=== PATIENT | female | born 1955 | race Caucasian/White ===

== ENCOUNTER 2016-11-19 16:31 | Emergency (ER) | payer BC ==
[~2016-11-19] VITALS: Ht 167.6 cm; Wt 99.3 kg
[2016-11-19 16:49] VITALS: BP 134/85
--- NOTE | 2016-11-19 17:01 | PHYS DOC ---
Adult General Chief Complaint Chief Complaint: WRIST PAIN HPI HPI Patient is a 61 year old female who presents with complaint of left wrist pain. Patient states that she had an accidental fall earlier this morning after she stepped on her grandson's toy, causing her to fall back. Patient states that she tried to catch herself with both hands. Patient states that she injured her left wrist as a result of the fall. Patient states that she bumped her head but did not lose consciousness. Patient denies any other injuries. Patient states that she has history of arthritis and is currently on Mobic therapy. Patient states that she took her regular medication today but did not take anything in addition for her pain. Patient states currently she has 8 out of 10 pain in the left wrist. Patient states that the left wrist has progressively swollen and become more painful to the point where she is unable to spring fitter with her left hand. Patient came to the emergency department for evaluation to see if she has any evidence of broken bones in her wrist. Review of Systems Review of Systems Constitutional: Denies fever or chills [] Eyes: Denies change in visual acuity, redness, or eye pain [] HENT: Denies nasal congestion or sore throat [] Respiratory: Denies cough or shortness of breath [] Cardiovascular: Denies chest pain or edema [] GI: Denies abdominal pain, nausea, vomiting, bloody stools or diarrhea [] : Denies dysuria or hematuria [] Musculoskeletal: Left wrist pain [] Integument: Denies rash or skin lesions [] Neurologic: Denies headache, focal weakness or sensory changes [] Current Medications Current Medications Current Medications Medications (Trade) Dose Ordered Sig/[facility] Start Time Stop Time Status Last Admin Dose Admin Acetaminophen (Tylenol) 1,000 mg 1X ONCE 11/19/16 17:00 11/19/16 17:01 UNV Allergies Allergies Allergies Coded Allergies Type Severity Reaction Last Updated Verified No Known Drug Allergies 11/19/16 No Physical Exam Physical Exam Constitutional: Well developed, well nourished, no acute distress, non-toxic appearance. [] HENT: Normocephalic, atraumatic, bilateral external ears normal, oropharynx moist, no oral exudates, nose normal. [] Eyes: PERRLA, EOMI, conjunctiva normal, no discharge. [] Neck: Normal range of motion, no tenderness, supple, no stridor. [] Cardiovascular:Heart rate regular rhythm, no murmur [] Lungs & Thorax: Bilateral breath sounds clear to auscultation [] Abdomen: Bowel sounds normal, soft, no tenderness, no masses, no pulsatile masses. [] Skin: Warm, dry, no erythema, no rash. [] Back: No tenderness, no CVA tenderness. [] Extremities: Dorsal soft tissue swelling over distal left forearm, tenderness to palpation in the left anatomical snuffbox, pain at base of thumb with axial loading, decreased range of motion secondary to pain in all 5 digits and left wrist, capillary refill less than 2 seconds, normal sensation in all 5 digits of left hand. [] Neurologic: Alert and oriented X 3, normal motor function, normal sensory function, no focal deficits noted. [] EKG EKG Not performed [] Radiology/Procedures Radiology/[place] [address] IMAGING REPORT Signed PATIENT: PURNIMA CULVER ACCOUNT: [id number] : 1955 LOCATION: ER AGE: 61 SEX: F EXAM STATUS: PRE ER ORD. PHYSICIAN: DIEGO PERALTA MD REASON: fall, left wrist injury PROCEDURE: FOREARM LEFT Indication fall, pain. AP and lateral views of the left forearm were obtained. No acute bony finding is seen DICTATED AND SIGNED BY: CHEMA CM MD DATE: 11/19/16 170 CC: DIEGO PERALTA MD; FATEM[facility] [place]ION [place] ~ [place] [address] IMAGING REPORT Signed PATIENT: PURNIMA CULVER ACCOUNT: [id number] : 1955 LOCATION: ER AGE: 61 SEX: F EXAM STATUS: PRE ER ORD. PHYSICIAN: DIEGO PERALTA MD REASON: fall, left wrist injury PROCEDURE: WRIST 3V LEFT Indication fall, pain. AP oblique and lateral views of the left wrist were obtained. There is some mild degenerative change involving the carpal bones on the radial side. Acute bony finding is not seen DICTATED AND SIGNED BY: CHEMA CM MD DATE: 11/19/16 1705 CC: DIEGO PERALTA MD; FATEMEH CARRION ~ [] Course & Med Decision Making Course & Med Decision Making Pertinent Labs and Imaging studies reviewed. (See chart for details) Patient's x-rays were negative for acute fracture. Patient was given a Velcro splint to the left wrist to assist with discomfort. This was applied by the emergency department nurse. My evaluation post application showed normal capillary refill in all 5 digits of the left hand and normal sensation. I recommended that the patient follow-up in the next 10-14 days with her primary doctor for reevaluation if symptoms are not improving and recommended return to emergency department for any worsening symptoms. Patient voiced understanding and in agreement with treatment plan. Dragon Disclaimer Dragon Disclaimer This chart was dictated in whole or in part using Voice Recognition software in a busy, high-work load, and often noisy Emergency Department environment. It may contain unintended and wholly unrecognized errors or omissions. Departure Departure: Impression: Primary Impression: Left wrist sprain Disposition: HOME, SELF-CARE Condition: IMPROVED Referrals: FATEMEH CARRION (PCP) Patient Instructions: Joint Sprain Additional Instructions: Follow-up in 10-14 days with your primary doctor if symptoms are not improving. Return to the emergency department for any worsening symptoms. Scripts Hydrocodone Bit/Acetaminophen (NORCO 5-325 TABLET) 1 Each Tablet 1 TAB PO Q4-6HRS Y for PAIN, #20 TAB Prov: DIEGO PERALTA MD 11/19/16 Problem Qualifiers Primary Impression: Left wrist sprain Encounter type: initial encounter Qualified Codes: S63.502A - Unspecified sprain of left wrist, initial encounter DIEGO PERALTA MD November 19, 2016 17:01
[2016-11-19] MEDS ORDERED: HYDR-971 PO (17:07)
--- NOTE | 2016-11-19 17:08 | RAD ---
Indication fall, pain. AP oblique and lateral views of the left wrist were obtained. There is some mild degenerative change involving the carpal bones on the radial side. Acute bony finding is not seen
--- NOTE | 2016-11-19 17:11 | RAD ---
Indication fall, pain. AP and lateral views of the left forearm were obtained. No acute bony finding is seen
[2016-11-19] MEDS ORDERED: ACETAMINOPHEN 500 MG TABLET PO ONE (17:20)
== END 2016-11-19 17:15 | disposition home or self-care (01) ==
LOC: ER 16:31
DX: S63.502A Unspecified sprain of left wrist, initial encounter (principal); W18.31XA Fall on same level due to stepping on an object, initial encounter; Y93.89 Activity, other specified; Y99.8 Other external cause status; Y92.89 Other specified places as the place of occurrence of the external cause
CPT/HCPCS: 29125; 73090; 73110; 99284-25

== ENCOUNTER → 2016-11-30 | Outpatient (CLI) | payer BC ==
[2016-11-19 16:49] VITALS: BP 134/85
[~2016-11-30] MED LIST: HYDR-971 PO
--- NOTE | 2016-11-30 09:58 | RAD ---
Examination: 3 views of the left wrist History: History of left wrist pain status post fall Comparison: 11/19/2016 Findings: Osseous demineralization limits evaluation There is a very subtle lucent line identified in the lateral aspect of the distal radius seen only breast on the AP view is probably artifactual or a very subtle hairline fracture. The carpal bones appear to be well aligned. There is moderate degenerative changes identified in the first carpometacarpal joint. In the distal scaphoid seen best on the scaphoid view there is a very faint subtle lucent line identified which may be a lucent trabecular line or a faint subtle fracture. Soft tissue swelling identified about the distal forearm Impression: Faint subtle lucent lines identified in the lateral aspect of the distal radius and possibly in the distal portion of the scaphoid could be lucent trabecular lines or less likely faint subtle fractures. Examination is very limited due to osseous demineralization. Recommend MRI for further evaluation.
== END | disposition home or self-care (01) ==
LOC: DXRADRC 09:40
PROVIDERS: ATTEND Physician Assistant Medical
DX: M25.532 Pain in left wrist (principal); W19.XXXD Unspecified fall, subsequent encounter
CPT/HCPCS: 73110

== ENCOUNTER → 2017-02-22 | Outpatient (CLI) | payer BC ==
--- NOTE | 2017-02-22 14:58 | RAD ---
Indication left hand pain. Fall several months previously. AP oblique and lateral views of the left hand were obtained. There is some diffuse soft tissue swelling about the wrist. There is probable bony demineralization. Significant degenerative changes are not seen involving the hand although there is some radiocarpal narrowing. No acute bony finding is seen.. IMPRESSION: No acute bony finding. Probable bony demineralization
== END | disposition home or self-care (01) ==
LOC: DXRADRC 13:06
PROVIDERS: ATTEND Physician Assistant Medical
DX: M79.642 Pain in left hand (principal); M79.89 Other specified soft tissue disorders; W19.XXXD Unspecified fall, subsequent encounter
CPT/HCPCS: 73130

== ENCOUNTER → 2017-09-08 | Outpatient (CLI) | payer BC ==
--- NOTE | 2017-09-08 16:08 | RAD ---
2 view CXR: Clinical indications: Shortness of breath since June 2017. Comparison: December 06, 2011. Findings: No acute lung infiltrate or pleural effusion or pulmonary edema or lung mass or pneumothorax is seen. The heart size, pulmonary vasculature, mediastinum and both sandra are unremarkable. The osseous structures appear intact. Impression: No acute radiographic abnormality is seen.
== END | disposition home or self-care (01) ==
LOC: PMG 15:48
PROVIDERS: ATTEND Physician Assistant Medical
DX: R06.02 Shortness of breath (principal)
CPT/HCPCS: 71046

== ENCOUNTER → 2017-09-14 | Outpatient (CLI) | payer BC ==
--- NOTE | 2017-09-14 15:32 | RAD ---
CT maxillofacial without contrast 09/14/2017 Clinical indication: Chronic sinusitis. Comparison: None. Technique: Multiple CT images of the maxillofacial region were obtained without contrast. PQRS Compliance Statement: One or more of the following individualized dose reduction techniques were utilized for this examination: 1. Automated exposure control 2. Adjustment of the mA and/or kV according to patient size 3. Use of iterative reconstruction technique Findings: Visualized intracranial structures, globes and orbits are unremarkable. The intraconal fat is preserved. Symmetric extraocular muscles. Mild rightward deviation of the nasal septum. Partial fluid opacification of the bilateral mastoid air cells. There is air-fluid level in the sphenoid sinus. Maxillary, ethmoid and frontal sinuses are well aerated. There is patency of the ostiomeatal units. No evidence of bony dehiscent. Impression: 1. Sphenoid sinus air-fluid level, suggestive of acute sinusitis. 2. Ostiomeatal units are patent. 3. Partial bilateral mastoid effusions.
== END | disposition home or self-care (01) ==
LOC: CT 15:03
PROVIDERS: ATTEND Physician Assistant Medical
DX: J32.9 Chronic sinusitis, unspecified (principal); H74.8X3 Other specified disorders of middle ear and mastoid, bilateral; J34.2 Deviated nasal septum
CPT/HCPCS: 70486

== ENCOUNTER → 2017-10-18 | Outpatient (CLI) | payer BC ==
--- NOTE | 2017-10-18 17:11 | RAD ---
CT sinus without contrast History: Chronic sinusitis, congestion, pain. Comparison: September 14, 2017 Technique: CT of the sinuses was performed without intravenous contrast. Axial, sagittal, and coronal reconstructions were obtained. Exposure: One or more of the following individualized dose reduction techniques were utilized for this examination: 1. Automated exposure control 2. Adjustment of the mA and/or kV according to patient size 3. Use of iterative reconstruction technique Findings: There is a persistent air-fluid level involving the sphenoid sinus, although overall amount of fluid is decreased since the previous study. Posterior right maxillary sinus demonstrates minimal mucosal disease. Paranasal sinuses are otherwise clear. No mucoperiosteal reaction is identified. Bilateral ostiomeatal units are patent. Mild opacification of mastoid air cells is similar to previous study. IMPRESSION: 1. Mild left maxillary and sphenoid sinusitis, mildly improved from previous study. 2. Mild opacification of bilateral mastoid air cells, similar to previous study. Electronically signed by: Mikhail Wall MD (10/18/2017 5:08 PM) [place] [id number]
== END | disposition home or self-care (01) ==
LOC: DXRAD 09:56
PROVIDERS: ATTEND Otolaryngology
DX: J32.3 Chronic sphenoidal sinusitis (principal)
CPT/HCPCS: 70486

== ENCOUNTER → 2018-11-24 | Outpatient (CLI) | payer MEDICARE, BC ==
[~2018-11-24] MED LIST changes: +HYDR-3165 PO; -HYDR-971 PO
--- NOTE | 2018-11-24 17:24 | RAD ---
Bilateral knees, 6 views, 11/24/2018: HISTORY: Bilateral knee pain There is joint space narrowing medially on both sides, worse on the right. There is moderate spurring at both knee joints as well as at the patellofemoral articulations. No fracture or subluxation is evident. There is a suggestion of a small right knee joint effusion. IMPRESSION: 1. Moderate degenerative change at both knee joints. 2. No acute bony abnormality is detected. Electronically signed by: Celso Anguiano MD (11/24/2018 5:21 PM) [facility]
--- NOTE | 2018-11-24 17:24 | RAD ---
Bilateral knees, 6 views, 11/24/2018: HISTORY: Bilateral knee pain There is joint space narrowing medially on both sides, worse on the right. There is moderate spurring at both knee joints as well as at the patellofemoral articulations. No fracture or subluxation is evident. There is a suggestion of a small right knee joint effusion. IMPRESSION: 1. Moderate degenerative change at both knee joints. 2. No acute bony abnormality is detected. Electronically signed by: Celso Anguiano MD (11/24/2018 5:21 PM) [facility]
== END | disposition home or self-care (01) ==
LOC: RAD 09:35
PROVIDERS: ATTEND Orthopaedic Surgery
DX: M17.0 Bilateral primary osteoarthritis of knee (principal); M25.762 Osteophyte, left knee; M25.761 Osteophyte, right knee
CPT/HCPCS: 73560; 73565

== ENCOUNTER → 2019-01-12 | Outpatient (CLI) | payer MEDICARE, BC ==
--- NOTE | 2019-01-23 10:03 | RAD ---
DATE: 01/12/2019 EXAM: MAMMO SAYDA SCREENING BILATERAL HISTORY: Routine screening COMPARISON: No prior exams are available. Attempts to obtain prior exams were unsuccessful. This study was interpreted with the benefit of Computerized Aided Detection (CAD). Breast Density: SCATTERED The breast parenchyma shows scattered fibroglandular densities. Breast parenchyma level B. FINDINGS: Benign calcifications are present. Focal asymmetry involving the anterior left upper outer breast is present. It is located 2.9 cm from the nipple. No distortion. IMPRESSION: Focal asymmetry along the left upper outer breast which probably represents summation of normal breast parenchyma is present. Prior exams however are not available for assessment of stability. Spot compression is recommended. Ultrasound may be needed. BI-RADS CATEGORY: 0 INCOMPLETE: NEEDS ADDITIONAL IMAGING EVALUATION AND/OR PRIOR MAMMOGRAMS FOR COMPARISON. RECOMMENDED FOLLOW-UP: ADD ADDITIONAL IMAGING PQRS compliance statement: Patient information was entered into a reminder system with a target due date pending additional imaging for the next mammogram. Mammography is a sensitive method for finding small breast cancers, but it does not detect them all and is not a substitute for careful clinical examination. A negative mammogram does not negate a clinically suspicious finding and should not result in delay in biopsying a clinically suspicious abnormality. "Our facility is accredited by the [employer] Mammography Program."
== END | disposition home or self-care (01) ==
LOC: MAMMO 13:05
PROVIDERS: ATTEND Physician Assistant Medical
DX: Z12.31 Encounter for screening mammogram for malignant neoplasm of breast (principal); N64.89 Other specified disorders of breast
CPT/HCPCS: 77063; 77067

== ENCOUNTER → 2019-02-03 | Outpatient (CLI) | payer MEDICARE, BC ==
--- NOTE | 2019-02-03 14:57 | RAD ---
Indication: Left breast callback TECHNIQUE: Limited ultrasound of the left upper outer quadrant of the breast COMPARISON: Same day diagnostic mammogram FINDINGS: The skin is normal in thickness. No cystic or solid lesions seen in the interrogated upper outer left breast quadrant IMPRESSION: No suspicious sonographic findings. Findings seen on mammogram likely dense glandular tissue. BI-RADS 2: Benign finding. Continued annual screening. Electronically signed by: Indra Stevenson DO (02/03/2019 2:54 PM) [facility]
--- NOTE | 2019-02-03 14:59 | RAD ---
DATE: 02/03/2019 EXAM: DIGITAL DIAGNOSTIC LT HISTORY: Callback. COMPARISON: Most recent mammogram from 01/12/2019. This study was interpreted with the benefit of Computerized Aided Detection (CAD). FINDINGS: Breast Density: SCATTERED The breast parenchyma shows scattered fibroglandular densities. Breast parenchyma level B. Persistent focal asymmetry in the upper outer quadrant of the left breast most likely dense fibroglandular tissue. IMPRESSION: As above. Please see ultrasound report from the same day. BI-RADS CATEGORY: 2 BENIGN FINDING(S) RECOMMENDED FOLLOW-UP: 12M 12 MONTH FOLLOW-UP PQRS compliance statement: Patient information was entered into a reminder system with a target due date for the next mammogram. Mammography is a sensitive method for finding small breast cancers, but it does not detect them all and is not a substitute for careful clinical examination. A negative mammogram does not negate a clinically suspicious finding and should not result in delay in biopsying a clinically suspicious abnormality. "Our facility is accredited by the [employer] Mammography Program."
== END | disposition home or self-care (01) ==
LOC: MAMMO 13:33
PROVIDERS: ATTEND Physician Assistant Medical
DX: R92.2 Inconclusive mammogram (principal)
CPT/HCPCS: 76641; 77065

== ENCOUNTER 2019-03-19 17:35 | Emergency (ER) | payer MEDICARE, BC ==
--- NOTE | 2019-03-19 18:35 | PHYS DOC ---
Past History Past Medical History: Arthritis, Depression Past Surgical History: Cholecystectomy, Knee Replacement Alcohol Use: None Drug Use: None Adult General Chief Complaint Chief Complaint: KNEE INJURY HPI HPI Patient is a 64-year-old female presents complaining of right knee pain. This started around noon she was getting up from the table. She felt like she couldn't walk on it, increased pain with weightbearing. She took a nap for a little while and things improved. However when getting up from a table around 4:00 this evening, pain again increased. No trauma. She has a history of recent steroid injection several weeks ago and both knees, and reports that her left knee is doing as well as it ever does. No previous history of this with previous knee injections. No knee surgeries. No fever. No redness. She reports it feels warm. Minimal relief with acetaminophen. She is not on any blood thinners. No recent travel. No dysuria or vaginal discharge.[] Review of Systems Review of Systems Constitutional: Denies fever or chills [] Eyes: Denies change in visual acuity, redness, or eye pain [] HENT: Denies nasal congestion or sore throat [] Respiratory: Denies cough or shortness of breath [] Cardiovascular: No chest pain or palpitations[] GI: Denies abdominal pain, nausea, vomiting, bloody stools or diarrhea [] : Denies dysuria or hematuria [] Musculoskeletal: Denies back pain, see history of present illness[] Integument: Denies rash or skin lesions [] Neurologic: Denies headache, focal weakness or sensory changes [] Endocrine: Denies polyuria or polydipsia [] All other systems were reviewed and found to be within normal limits, except as documented in this note. Allergies Allergies Allergies Coded Allergies Type Severity Reaction Last Updated Verified No Known Drug Allergies 11/19/16 No Physical Exam Physical Exam Constitutional: Well developed, well nourished, no acute distress, non-toxic appearance. [] HENT: Normocephalic, atraumatic, bilateral external ears normal, oropharynx moist, no oral exudates, nose normal. [] Eyes: PERRLA, EOMI, conjunctiva normal, no discharge. [] Neck: Normal range of motion, no tenderness, supple, no stridor. [] Cardiovascular:Heart rate regular rhythm, no murmur [] Lungs & Thorax: Bilateral breath sounds clear to auscultation [] Abdomen: Bowel sounds normal, soft, no tenderness, no masses, no pulsatile m asses. [] Skin: Warm, dry, no erythema, no rash. [] Back: No tenderness, no CVA tenderness. [] Extremities: Bilateral knees have edema and effusion, left appears larger than right. Patient has tenderness to palpation lateral portion of her right knee, full active range of motion. No joint line tenderness. Patella is ballotable bilaterally. No patellar apprehension. Negative drawer, negative Sage test. No varus or valgus laxity. She is distally neurovascularly intact. The joint above and below were evaluated and were normal. The other 3 extremities show except for noted on the left knee above: No tenderness, no cyanosis, no clubbing, ROM intact, no edema. [] Neurologic: Alert and oriented X 3, normal motor function, normal sensory function, no focal deficits noted. [] Psychologic: Affect normal, judgement normal, mood normal. [] Current Patient Data Vital Signs Vital Signs Date Time Temp Pulse Resp B/P (MAP) Pulse Ox O2 Delivery O2 Flow Rate FiO2 03/19/19 17:48 74 18 96 Room Air EKG EKG [] Radiology/Procedures Radiology/Procedures X-ray of the right knee shows no evidence of a fracture or dislocation, no significant effusion.[] Course & Med Decision Making Course & Med Decision Making Pertinent Labs and Imaging studies reviewed. (See chart for details) []ED course: Patient arrived, was placed in bed, and tolerated exam well. She was transported to and from radiology with any complications. Attempted arthrocentesis after informed consent was signed with all questions answered. Patient was prepped and draped in sterile manner. 3 L of 1% lidocaine were administered for anesthesia. 18-gauge needle was inserted via the lateral approach. No significant amount of fluid was obtained after several attempts and repositioning. After the return of the laboratory and imaging studies, discussed these findings with the patient who voiced understanding. All questions were answered. She was discharged in improved condition. Medical decision making: There is no evidence of a fracture or dislocation. Believe this to be more related to her arthritis despite the inability to obtain any significant amount of fluid through an arthrocentesis. This seems to be related to arthritis given that its worse with a bend at 90�, and she is able to walk in the emergency department without any significant discomfort while keeping the leg essentially straight while lying in bed. There is no evidence of a septic joint. Dragon Disclaimer Dragon Disclaimer This electronic medical record was generated, in whole or in part, using a voice recognition dictation system. Departure Departure: Impression: Primary Impression: Knee pain Disposition: HOME, SELF-CARE Condition: IMPROVED Referrals: FATEMEH CARRION (PCP) Follow-up in 2 days Patient Instructions: Knee Exercises, Generic, SportsMed, Knee Pain Additional Instructions: Follow-up with your regular doctor in 2 days and your orthopedic appointment as scheduled. Return to the ER if worsening pain, weakness, fever of more than 101�, redness, or any other concerns. Scripts Tramadol Hcl (TRAMADOL HCL) 50 Mg Tablet 50 MG PO PRN Q6HRS PRN for PAIN, #20 TAB Prov: VANESA GRAHAM DO 03/19/19 Problem Qualifiers Primary Impression: Knee pain Chronicity: acute Laterality: right Qualified Codes: M25.561 - Pain in right knee VANESA GRAHAM DO Mar 19, 2019 18:35
[2019-03-19 19:03] LABS: BASO # 0.1 x10^3/uL (0.0-0.2); BASO % 1 % (0-3); EOS # 0.1 x10^3/uL (0.0-0.7); EOS % 2 % (0-3); HEMATOCRIT 42.8 % (36.0-47.0); HEMOGLOBIN 14.5 g/dL (12.0-15.5); LYMPH # 1.3 x10^3/uL (1.0-4.8); LYMPH % 23 % (24-48); MEAN CORPUSCULAR HEMOGLOBIN 34 pg (25-35); MEAN CORPUSCULAR HGB CONC 34 g/dL (31-37); MEAN CORPUSCULAR VOLUME 100 fL (79-100); MONO # 0.5 x10^3/uL (0.0-1.1); MONO % 8 % (0-9); NEUT # 3.8 x10^3uL (1.8-7.7); NEUT % 66 % (31-73); PLATELET COUNT 176 x10^3/uL (140-400); RED BLOOD COUNT 4.29 x10^6/uL (3.50-5.40); RED CELL DISTRIBUTION WIDTH 13.1 % (11.5-14.5); WHITE BLOOD COUNT 5.8 x10^3/uL (4.0-11.0)
[2019-03-19 19:14] LABS: C REACTIVE PROTEIN 0.6 mg/L (0-3.3); CALCIUM 9.2 mg/dL (8.5-10.1); CREATININE 1.1 mg/dL (0.6-1.0); GFR 49.7
[2019-03-19] MEDS ORDERED: LIDOCAINE 2% 20 ML VIAL. ONE (19:16)
[2019-03-19 19:19] LABS: BILIRUBIN,URINE NEG (NEG); CLARITY,URINE CLEAR; COLOR,URINE YELLOW; GLUCOSE,URINE NEG (NEG); NITRITE,URINE NEG (NEG); UROBILINOGEN,URINE 1 mg/dL (0.2 mg/dL)
[2019-03-19 19:20] LABS: BACTERIA,URINE 0 /HPF (0-FEW); RBC,URINE 0 /HPF (0-2); SQUAMOUS EPITHELIAL CELL,UR OCC /LPF; WBC,URINE OCC /HPF (0-4)
[2019-03-19] MEDS ORDERED: LIDOCAINE 1% Multi-Dose 20 ML VIAL. IJ ONE (19:30)
[2019-03-19 20:19] LABS: SEDIMENTATION RATE 15 (0-25)
[2019-03-19] MEDS ORDERED: TRAM50TA PO (20:36)
[2019-03-19 20:38] VITALS: BP 142/83
--- NOTE | 2019-03-19 22:36 | RAD ---
KNEE RIGHT 3V INDICATION: Knee pain and swelling COMPARISON: Knee radiographs dated 11/24/2018 FINDINGS: No acute fracture or malalignment. 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 Small suprapatellar joint effusion. Bony mineralization is normal for the patient's age. No significant soft tissue abnormality. No radiopaque foreign body. IMPRESSION: 1. No acute fracture or malalignment. 2. 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 3. Small suprapatellar joint effusion. Electronically signed by: Raheel Tripathi MD (03/19/2019 10:33 PM) [facility]
== END 2019-03-19 20:40 | disposition home or self-care (01) ==
LOC: ER 17:35
DX: M25.561 Pain in right knee (principal); M19.90 Unspecified osteoarthritis, unspecified site; Z96.659 Presence of unspecified artificial knee joint
CPT/HCPCS: 20610; 36415; 73562; 80048; 81001; 85025; 85610; 85651; 86140; 87040; 87491; 87591; 99285-25

== ENCOUNTER 2019-08-05 09:08 | Emergency (ER) | payer MEDICARE, BC ==
[~2019-08-05 09:08] MED LIST changes: +TRAM50TA PO
[2019-08-05 09:15] VITALS: BP 128/79
[2019-08-05] MEDS ORDERED: LIDOCAINE 2% 20 ML VIAL. ONE (09:24)
--- NOTE | 2019-08-05 09:39 | PHYS DOC ---
Past History Past Medical History: No Pertinent History, Arthritis, Depression Past Surgical History: Cholecystectomy, Knee Replacement Alcohol Use: None Drug Use: None Adult General Chief Complaint Chief Complaint: HEMORRHOIDS HPI HPI Patient is a [64 yo f with hemorrhoid x one week, primary clinic thought thrombosed so sent to er has had this before using prep h with no relief no bleeding just moderate worsening nonradiating pain worse with defecdation] Review of Systems Review of Systems Constitutional: Denies fever or chills [] Eyes: Denies change in visual acuity, redness, or eye pain [] HENT: Denies nasal congestion or sore throat [] Integument: Denies rash or skin lesions [] All other systems were reviewed and found to be within normal limits, except as documented in this note. Current Medications Current Medications Current Medications Medications (Trade) Dose Ordered Sig/Abad Start Time Stop Time Status Last Admin Dose Admin Lidocaine HCl 20 ml STK-MED ONCE 08/05/19 09:24 08/05/19 09:24 DC Allergies Allergies Allergies Coded Allergies Type Severity Reaction Last Updated Verified No Known Drug Allergies 11/19/16 No Physical Exam Physical Exam Constitutional: Well developed, well nourished, no acute distress, non-toxic appearance. [] HENT: Normocephalic, atraumatic, bilateral external ears normal, oropharynx moist, no oral exudates, nose normal. [] Eyes: PERRLA, EOMI, conjunctiva normal, no discharge. [] Abdomen:nontender rectal small 2 cm thrombosed hemorrhoid no actie bleeding Skin: Warm, dry, no erythema, no rash. [] Back: No tenderness, no CVA tenderness. [] Extremities: No tenderness, no cyanosis, no clubbing, ROM intact, no edema. [] Neurologic: Alert and oriented X 3, normal motor function, normal sensory function, no focal deficits noted. [] Psychologic: Affect normal, judgement normal, mood normal. [] Current Patient Data Vital Signs Vital Signs Date Time Temp Pulse Resp B/P (MAP) Pulse Ox O2 Delivery O2 Flow Rate FiO2 08/05/19 09:15 78 18 96 Room Air EKG EKG [] Radiology/Procedures Radiology/Procedures [] Course & Med Decision Making Course & Med Decision Making Pertinent Labs and Imaging studies reviewed. (See chart for details) []procedure note verbal consent obtained, chlorhexidine prep lidocaine for anesthesia subq, 0.5 cm incision made and a good sized blood clot was removed, gauze applied pt tolerated well counseled on wound care and use of stool softeners return prec discussed Laura Disclaimer Laura Disclaimer This electronic medical record was generated, in whole or in part, using a voice recognition dictation system. Departure Departure: Impression: Primary Impression: Hemorrhoid Disposition: HOME, SELF-CARE Condition: STABLE Patient Instructions: Hemorrhoids, [id number] LASHAE LOYOLA MD Aug 05, 2019 09:39
== END 2019-08-05 09:57 | disposition home or self-care (01) ==
LOC: ER 09:08
DX: K64.5 Perianal venous thrombosis (principal); M19.90 Unspecified osteoarthritis, unspecified site
CPT/HCPCS: 46083; 99284

== ENCOUNTER 2020-01-13 07:01 | Observation (INO) | payer MEDICARE, BC ==
[~2020-01-13] VITALS: Ht 167.6 cm; Wt 84.5 kg
--- NOTE | 2020-01-13 07:13 | PHYS DOC ---
Past History Past Medical History: Arthritis, Depression Past Surgical History: Cholecystectomy, Knee Replacement Smoking: Non-smoker Alcohol Use: None Drug Use: None General Adult EDM: Chief Complaint: CHEST PAIN HPI: HPI: 65-year-old female presents with report of right-sided chest pain which radiates needed to her right jaw and between her shoulder blades that started at 0500 this morning. Patient does report some associated nausea and shortness of air. Denies pleuritic pain. Denies leg swelling or calf tenderness. Denies fever or chills. Denies cough. Denies known exposure to COVID-19. Patient does report cardiac risk factors are significant with family history. Denies history or family history of PE/DVT. Review of Systems: Review of Systems: Constitutional: Denies fever or chills Eyes: Denies redness or eye pain HENT: Denies nasal congestion or sore throat Respiratory: Denies cough; reports shortness of breath Cardiovascular: Reports chest pain; denies palpitations GI: Denies abdominal pain or vomiting; reports nausea : Denies dysuria or hematuria Musculoskeletal: Reports back pain; denies extremity pain or swelling Integument: Denies rash or skin lesions Neurologic: Denies headache, focal weakness or sensory changes Complete systems were reviewed and found to be within normal limits, except as documented in this note. Heart Score: HEART Score for Chest Pain: HEART Score for Chest Pain Response (Comments) Value History Moderately Suspicious 1 ECG Normal 0 Age > 65 2 Risk Factors 1 or 2 Risk Factors 1 Troponin < Normal Limit 0 Total 4 Risk Factors: Risk Factors: DM, Current or recent (<one month) smoker, HTN, HLP, family history of CAD, obesity. Risk Scores: Score 0 - 3: 2.5% MACE over next 6 weeks - Discharge Home Score 4 - 6: 20.3% MACE over next 6 weeks - Admit for Clinical Observation Score 7 - 10: 72.7% MACE over next 6 weeks - Early Invasive Strategies Current Medications: Current Meds: Current Medications Medications (Trade) Dose Ordered Sig/Abad Start Time Stop Time Status Last Admin Dose Admin Aspirin (Juan Aspirin) 325 mg 1X ONCE 01/13/20 07:15 01/13/20 07:16 UNV Allergies: Allergies: Allergies Coded Allergies Type Severity Reaction Last Updated Verified No Known Drug Allergies 11/19/16 No Physical Exam: PE: Constitutional: Well developed, well nourished, no acute distress, non-toxic appearance HENT: Normocephalic, atraumatic Eyes: Conjunctiva normal, no discharge Neck: Normal range of motion, no tenderness, supple Cardiovascular: Heart rate normal, regular rhythm Lungs & Thorax: Bilateral breath sounds clear to auscultation, no wheezing Abdomen: Soft, no tenderness Skin: Warm, dry, no erythema, no rash Extremities: No tenderness, ROM intact, trace edema to bilateral lower extremities Neurologic: Alert and oriented X 3, no focal deficits noted Psychologic: Affect normal, judgment normal EKG: EKG: @0707 NSR at 67bpm, NO ST elevation, QRS 90ms, QT/QTc 408/434ms, Q wave aVL, nonspecific t wave inversion V1-V2 Radiology/Procedures: Radiology/Procedures: PROCEDURE: CT ANGIOGRAPHY CHEST EXAM: CT Pulmonary Angiogram INDICATION: Reason: chest pain, elevated d-dimer / Spl. Instructions: / History: TECHNIQUE: Multi-detector row images were acquired from the thoracic inlet through the upper abdomen with the use of IV contrast. Sagittal and coronal images were acquired from the transaxial data. MIP images of the pulmonary arteries were obtained. All CT scans performed at this facility utilize dose optimization techniques as appropriate to the exam, including the following: Automated exposure control and adjustment of the mA and/or KV according to patient size (this includes techniques or standardized protocols for targeted exams where dose is indication/reason for exam). IV CONTRAST: Administered COMPARISON: None FINDINGS: PULMONARY ARTERIES: No pulmonary emboli are identified. CARDIOVASCULAR: Borderline ectasia of the ascending thoracic aorta at 4.1 cm. No dissection is apparent. Minimal coronary calcifications present. Heart is normal in size. No pericardial effusion. MEDIASTINUM & VALDO: Mild thickening of the distal thoracic esophageal wall. LUNGS: No pulmonary infiltrate, nodule, or other focal abnormality. PLEURAL SPACE: No pleural effusions or pneumothorax. OSSEOUS & SOFT TISSUE: Unremarkable ABDOMEN: Clips in the right upper quadrant abdomen compatible previous cholecystectomy and a partially imaged laparoscopic gastric band are present. IMPRESSION: 1. No pulmonary emboli. 2. No acute cardiopulmonary process shown. 3. Mild ectasia of the ascending thoracic aorta to 4.1 cm. 4. Nonspecific wall thickening of the distal thoracic esophagus in the setting of previous left laparoscopic gastric banding. Electronically signed by: Makenna Gaona MD (01/13/2020 8:45 AM) [id number] Course & Med Decision Making: Course & Med Decision Making Pertinent Labs and Imaging studies reviewed. (See chart for details) Patient presents with chest pain. Patient with significant family history. EKG stable. Labs obtained and posted to chart. Creatinine near baseline per [employer] review. Initial troponin within normal limits. D-dimer elevated. CTA chest without acute process. HEART score 4. Patient requiring observation admission for further evaluation and treatment. Discussed with Dr. Ledbetter (hospitalist) who is in agreement with admission. Discussed findings and plan with patient, who acknowledges understanding and agreement. Dragon Disclaimer: Dragon Disclaimer: This electronic medical record was generated, in whole or in part, using a voice recognition dictation system. Departure Departure: Impression: Primary Impression: Chest pain Qualified Codes: R07.9 - Chest pain, unspecified Additional Impression: Elevated d-dimer Disposition: ADMITTED INPATIENT Admitting Physician: Hay Ledbetter Condition: STABLE Referrals: FATEMEH CARRION (PCP) Justification of Admission: Justification of Admission: Justification of Admission Dx: Yes Comments: Chest pain SIMRAN FUNES DO Jan 13, 2020 07:13
[2020-01-13] MEDS ORDERED: IV NORMAL SALINE 1,000ML 1,000 ML IV ONE (07:15)
[2020-01-13] MEDS ORDERED: ASPIRIN 325 MG TABLET PO ONE (07:15)
[2020-01-13 07:29] LABS: BASO % 0 % (0-3); EOS # 0.2 x10^3/uL (0.0-0.7); EOS % 3 % (0-3); HEMATOCRIT 44.3 % (36.0-47.0); HEMOGLOBIN 14.7 g/dL (12.0-15.5); LYMPH # 1.2 x10^3/uL (1.0-4.8); LYMPH % 14 % (24-48); MEAN CORPUSCULAR HEMOGLOBIN 33 pg (25-35); MEAN CORPUSCULAR HGB CONC 33 g/dL (31-37); MEAN CORPUSCULAR VOLUME 98 fL (79-100); MONO # 0.6 x10^3/uL (0.0-1.1); MONO % 7 % (0-9); NEUT # 6.9 x10^3uL (1.8-7.7); NEUT % 77 % (31-73); PLATELET COUNT 192 x10^3/uL (140-400); RED BLOOD COUNT 4.51 x10^6/uL (3.50-5.40); RED CELL DISTRIBUTION WIDTH 12.8 % (11.5-14.5)
[2020-01-13 07:38] LABS: ANION GAP 6 (6-14); BLOOD UREA NITROGEN 23 mg/dL (7-20); BUN/CREATININE RATIO 19 (6-20); CALCIUM 8.6 mg/dL (8.5-10.1); CARBON DIOXIDE 28 mmol/L (21-32); CHLORIDE 106 mmol/L (98-107); CREATININE 1.2 mg/dL (0.6-1.0); GFR 44.8; GLUCOSE 112 mg/dL (70-99); POTASSIUM 4.2 mmol/L (3.5-5.1); SODIUM 140 mmol/L (136-145)
[2020-01-13] MEDS ORDERED: FAMOTIDINE 20 MG/2 ML VIAL IVP ONE (07:45)
[2020-01-13 07:54] LABS: ALBUMIN 3.5 g/dL (3.4-5.0); ALBUMIN/GLOBULIN RATIO 1.1 (1.0-1.7); ALK PHOS 73 U/L (46-116); ALT (SGPT) 17 U/L (14-59); AST (SGOT) 11 U/L (15-37); LIPASE 133 U/L (73-393); MAGNESIUM 2.1 mg/dL (1.8-2.4); TOTAL BILIRUBIN 0.4 mg/dL (0.2-1.0); TOTAL PROTEIN 6.6 g/dL (6.4-8.2)
[2020-01-13] MEDS ORDERED: CONTRAST GIVEN. MC PRN (08:15)
[2020-01-13] MEDS ORDERED: IOHEXOL 350 MG/ML 100 ML VIAL. IV ONE (08:15)
[2020-01-13] MEDS ORDERED: ONDANSETRON PF 4 MG/2 ML VIAL. IVP ONE (08:15)
[2020-01-13 08:16] LABS: BILIRUBIN,URINE NEG (NEG); CLARITY,URINE CLEAR; COLOR,URINE YELLOW; GLUCOSE,URINE NEG (NEG)
[2020-01-13 08:17] LABS: BACTERIA,URINE 0 /HPF (0-FEW); NITRITE,URINE NEG (NEG); SQUAMOUS EPITHELIAL CELL,UR FEW /LPF; UROBILINOGEN,URINE 0.2 mg/dL (0.2 mg/dL)
--- NOTE | 2020-01-13 08:48 | RAD ---
EXAM: CT Pulmonary Angiogram INDICATION: Reason: chest pain, elevated d-dimer / Spl. Instructions: / History: TECHNIQUE: Multi-detector row images were acquired from the thoracic inlet through the upper abdomen with the use of IV contrast. Sagittal and coronal images were acquired from the transaxial data. MIP images of the pulmonary arteries were obtained. All CT scans performed at this facility utilize dose optimization techniques as appropriate to the exam, including the following: Automated exposure control and adjustment of the mA and/or KV according to patient size (this includes techniques or standardized protocols for targeted exams where dose is indication/reason for exam). IV CONTRAST: Administered COMPARISON: None FINDINGS: PULMONARY ARTERIES: No pulmonary emboli are identified. CARDIOVASCULAR: Borderline ectasia of the ascending thoracic aorta at 4.1 cm. No dissection is apparent. Minimal coronary calcifications present. Heart is normal in size. No pericardial effusion. MEDIASTINUM & VALDO: Mild thickening of the distal thoracic esophageal wall. LUNGS: No pulmonary infiltrate, nodule, or other focal abnormality. PLEURAL SPACE: No pleural effusions or pneumothorax. OSSEOUS & SOFT TISSUE: Unremarkable ABDOMEN: Clips in the right upper quadrant abdomen compatible previous cholecystectomy and a partially imaged laparoscopic gastric band are present. IMPRESSION: 1. No pulmonary emboli. 2. No acute cardiopulmonary process shown. 3. Mild ectasia of the ascending thoracic aorta to 4.1 cm. 4. Nonspecific wall thickening of the distal thoracic esophagus in the setting of previous left laparoscopic gastric banding. Electronically signed by: Makenna Gaona MD (01/13/2020 8:45 AM) [id number]
[2020-01-13] MEDS ORDERED: ONDANSETRON PF 4 MG/2 ML VIAL. IVP PRN (09:00)
[2020-01-13] MEDS ORDERED: BUPR150T15 PO (10:18)
[2020-01-13] MEDS ORDERED: FURO40TA4 PO (10:18)
[2020-01-13] MEDS ORDERED: MELO15TA23 PO (10:18)
[2020-01-13] MEDS ORDERED: SOLI10TA2 PO (10:18)
[2020-01-13] MEDS ORDERED: ESCITALOPRAM OX10 MG PO (10:18)
[2020-01-13 10:27] VITALS: BP 138/89
--- NOTE | 2020-01-13 11:22 | HP ---
ADMIT DATE: 01/13/2020 ATTENDING PHYSICIAN: Dr. Edwards. CHIEF COMPLAINT: Chest pain. HISTORY OF PRESENT ILLNESS: The patient is a pleasant 65-year-old female admitted to the ED with new onset of sharp chest pain starting at rest at 5:00 in the morning. The pain radiated to her back. It was associated with some nausea and minimal shortness of breath. In the ED, her electrocardiogram was nondiagnostic. Her first set of cardiac enzymes were negative for myocardial ischemia. She had a slightly elevated D-dimer, which led to a CT angiogram. Clots were ruled out. No pulmonary emboli. No infiltrates. The patient has degenerative arthritis. She has been on a longstanding dose of meloxicam and I believe that this is causing her symptoms. She has had some recent caffeine in the form of Diet Coke causing some nausea. She has not had any hematemesis or bleed. She was admitted then for observation, serial cardiac enzymes and monitoring. If the enzymes do turn positive, Cardiology consultation will be obtained. Her risk factors for heart disease include strong family and hypertension. She denied any tobacco use. She is not diabetic. There is no previous history of heart disease. PAST MEDICAL HISTORY: Significant for degenerative arthritis, clinical depression, some generalized anxiety. CURRENT MEDICATIONS: Reviewed. She was on meloxicam daily along with Fosamax, Celexa and bupropion, also, Lasix 40 mg daily. ALLERGIES: She has no recorded drug allergies. SOCIAL HISTORY: Nonsmoker, nondrinker. She uses quite a bit of caffeine in the form of Diet Coke. FAMILY HISTORY: The patient's mom at age 74 of heart disease. Father at age 78. She is . Her 4 years ago. She has a son and a daughter. Lately, she has been taking care of several grandchildren. One grandson has behavioral issues. This is causing her increased stress. No recent travel. No COVID-19 exposure. REVIEW OF SYSTEMS: No palpitation. All other systems reviewed and determined to be negative. PHYSICAL EXAMINATION: GENERAL: When I saw her, this is a very pleasant, alert, middle-aged female. INITIAL VITAL SIGNS: Showed a blood pressure of 138/89, pulse is 62 and regular, temperature 97.9 degrees Fahrenheit. Her oxygen saturation is 96% on room air. HEENT: Head is without trauma. Pupils are reactive. Sclerae nonicteric. Oropharynx is clear. NECK: Supple, no bruits or thyromegaly. LUNGS: Entirely clear to auscultation. CARDIOVASCULAR: Showed regular heart tones. Normal S1, S2. No obvious gallops or murmurs. Peripheral pulses are palpable and full. ABDOMEN: Obese, protuberant. No organomegaly. Bowel sounds are hypoactive. EXTREMITIES: Showed no cyanosis or edema. SKIN: Warm and dry. NEUROLOGIC: Focally intact. No focal deficits. Speech is fluent. PERTINENT LABORATORY AND X-RAY STUDIES: The CT of the chest angiogram showed no evidence of pulmonary emboli. Lung yun, otherwise clear. Heart size within normal range. Hemoglobin maintained at 14.7 g/dL with a white count of 9000. Electrolytes within normal range. Creatinine 1.2 mg/dL, nonfasting blood sugar 112 mg/dL. The first troponin level was nonischemic and normal. ASSESSMENT: 1. A 65-year-old female with atypical chest pain, central in nature. I believe that this is GI in nature, aggravated by her meloxicam. 2. Strong family history of heart disease, rule out coronary ischemia. 3. Degenerative arthritis. 4. Underlying depression with anxiety. PLAN: 1. Admission. 2. Serial cardiac enzymes. 3. Mobic has been held. 4. Empiric Protonix 40 mg daily. 5. Continue other home meds. 6. If symptoms improve and enzymes are negative, she can be discharged in the morning. CHERRIE EDWARDS MD DR: AKASH/elbert JOB#: [id number] / [id number] FATEMEH Simon
[2020-01-13] MEDS ORDERED: PANTOPRAZOLE 40 MG TABLET. PO SCH (11:30)
[2020-01-13 16:09] VITALS: BP 116/70
[2020-01-13 19:53] VITALS: BP 122/82
[2020-01-13] MEDS ORDERED: ACETAMINOPHEN 500 MG TABLET PO PRN (20:00)
--- NOTE | 2020-01-13 21:45 | NUR ---
Pt's heart rate is in the 50's while sleeping and sometimes drops into the 40's. Will continue to monitor.
[2020-01-13 23:27] VITALS: BP 131/87
[2020-01-14 05:52] VITALS: BP 120/78
--- NOTE | 2020-01-14 10:01 | DS ---
DATE OF DISCHARGE: 01/13/2020 FINAL DISCHARGE DIAGNOSES: 1. Atypical chest pain, coronary ischemia ruled out. 2. NSAID gastritis. 3. Degenerative arthritis. 4. Underlying depression with anxiety. HISTORY AND PHYSICAL: The patient is a very pleasant 65-year-old female who is still active and working. She comes into the ED complaining of new onset of epigastric pain radiating to her back. She is on meloxicam for degenerative arthritis. She does not smoke nor drink. PHYSICAL EXAMINATION: Please see the dictated note. PERTINENT LABORATORY AND X-RAY STUDIES: Three sets of cardiac enzymes were negative for coronary ischemia. Creatinine is 1.2 mg/dL. Nonfasting blood sugar 112. Electrolytes within normal range. Hemoglobin is 14.7 g with white count of 9000. CT of the chest demonstrated no evidence of pulmonary emboli or infiltrates. COURSE IN THE HOSPITAL: The patient was admitted and monitored overnight. Three sets of serial cardiac enzymes showed no evidence of myocardial ischemia. They were all 3 negative. We stopped her meloxicam and I started her empirically on Protonix 40 mg daily. The pain went away. By the next hospital day, she was feeling well. She ate her breakfast. Her vital signs were quite stable. Her blood pressure was 120/78, pulse 58 and regular. She was afebrile and room air saturations were 96%. Therefore, she is discharged home. I strongly recommend that she avoid further meloxicam or nonsteroidal anti-inflammatory agents. I recommended Protonix 40 mg daily for the next several months. Her other home meds include Wellbutrin, Lexapro, Lasix and VESIcare as prescribed. No Mobic for now. Regarding further cardiac workup, I have asked her to follow up with Tierney Zaragoza. If symptoms reoccur and further pain or symptoms, we can schedule her for an outpatient Cardiology evaluation. The patient was then discharged from our hospital in stable condition with explicit instructions and followup care. CHERRIE EDWARDS MD DR: AKASH/elbert JOB#: [id number] / [id number] TIERNEY Simon
--- NOTE | 2020-01-14 15:50 | PDOC2 ---
CONSULT Date of Admission DATE: 01/14/20 TIME: 15:46 Reason for Consult: Chest pain Referring Physician: Dr. Ledbetter Chief Complaint Chest pain Source: Chart review, Patient Problem List Problems Medical Problems: (1) Chest pain Status: Acute (2) Elevated d-dimer Status: Acute History of Present Illness The patient is a pleasant 65-year-old female who was admitted through the emergency room yesterday for episodes of right-sided chest pain. This pain radiated mildly to her right shoulder. It was associated with some mild shortness of breath. Initial EKG showed a sinus rhythm with no acute ischemic changes. Her d-dimer however was elevated at 1.52. She had a CT chest angiogram that showed no pulmonary emboli but did show nonspecific wall thickening of the distal esophagus. This morning she is comfortable. She states her pain has resolved. Musculoskeletal: Osteoarthritis Past Surgical History: Cholecystectomy, Total knee replacement Family History: Coronary Artery Disease Smoke: No ALCOHOL: none Current Medications Current Medications Aspirin (Juan Aspirin) 325 mg 1X ONCE PO Last administered on 01/13/20at 07:11; Start 01/13/20 at 07:15; Stop 01/13/20 at 07:19; Status DC Sodium Chloride 1,000 ml @ 1,000 mls/hr 1X ONCE IV Last administered on 01/13/20at 07:11; Start 01/13/20 at 07:15; Stop 01/13/20 at 08:14; Status DC Famotidine (Pepcid Vial) 20 mg 1X ONCE IVP Last administered on 01/13/20at 07:47; Start 01/13/20 at 07:45; Stop 01/13/20 at 07:46; Status DC Iohexol (Omnipaque 350 Mg/ml) 100 ml 1X ONCE IV Last administered on 01/13/20at 08:22; Start 01/13/20 at 08:15; Stop 01/13/20 at 08:16; Status DC Info (Do NOT chart on this entry -- for MONITORING) 1 each PRN DAILY PRN MC SEE COMMENTS; Start 01/13/20 at 08:15; Stop 01/14/20 at 10:34; Status DC Fentanyl Citrate (Fentanyl 2ml Vial) 50 mcg 1X ONCE IVP Last administered on 01/13/20at 08:32; Start 01/13/20 at 08:15; Stop 01/13/20 at 08:16; Status DC Ondansetron HCl (Zofran) 4 mg 1X ONCE IVP Last administered on 01/13/20at 08:32; Start 01/13/20 at 08:15; Stop 01/13/20 at 08:16; Status DC Ondansetron HCl (Zofran) 4 mg PRN Q4HRS PRN IVP NAUSEA/VOMITING; Start 01/13/20 at 09:00; Stop 01/14/20 at 08:59; Status DC Fentanyl Citrate (Fentanyl 2ml Vial) 50 mcg PRN Q2HR PRN IVP PAIN; Start 01/13/20 at 09:00; Stop 01/14/20 at 08:59; Status DC Pantoprazole Sodium (Protonix) 40 mg DAILYAC PO Last administered on 01/13/20at 12:03; Start 01/13/20 at 11:30; Stop 01/13/20 at 11:31; Status DC Acetaminophen (Tylenol) 1,000 mg PRN Q6HRS PRN PO pain Last administered on 01/13/20at 20:14; Start 01/13/20 at 20:00; Stop 01/14/20 at 10:34; Status DC Active Scripts Active Reported Wellbutrin Xl (Bupropion Hcl) 150 Mg Tab.er.24h 1 Tab PO [id number] Not taken this admission, take as prescribed at home. Furosemide 40 Mg Tablet 1 Tab PO DAILY Not taken this admission, take as prescribed at home. Escitalopram Oxalate 10 Mg Tablet 1 Tab PO DAILY Not taken this admission, take as prescribed at home. Vesicare (Solifenacin Succinate) 10 Mg Tablet 1 Tab PO DAILY Not taken this admission, take as prescribed at home. Allergies: Coded Allergies: No Known Drug Allergies (Unverified , 11/19/16) General: YES: Fatigue Cardiovascular: yes: Chest Pain General: No acute distress HEENT: Atraumatic Lungs: Clear to auscultation Heart: Regular rate Abdomen: Normal bowel sounds VITALS Vital Signs Date Time Temp Pulse Resp B/P (MAP) Pulse Ox O2 Delivery O2 Flow Rate FiO2 01/14/20 08:10 Room Air 01/14/20 05:52 97.8 58 18 120/78 (92) 96 Labs Laboratory Tests Test 01/13/20 07:08 01/13/20 07:43 01/13/20 12:03 01/13/20 15:20 White Blood Count 9.0 x10^3/uL (4.0-11.0) Red Blood Count 4.51 x10^6/uL (3.50-5.40) Hemoglobin 14.7 g/dL (12.0-15.5) Hematocrit 44.3 % (36.0-47.0) Mean Corpuscular Volume 98 fL (79-100) Mean Corpuscular Hemoglobin 33 pg (25-35) Mean Corpuscular Hemoglobin Concent 33 g/dL (31-37) Red Cell Distribution Width 12.8 % (11.5-14.5) Platelet Count 192 x10^3/uL (140-400) Neutrophils (%) (Auto) 77 % (31-73) Lymphocytes (%) (Auto) 14 % (24-48) Monocytes (%) (Auto) 7 % (0-9) Eosinophils (%) (Auto) 3 % (0-3) Basophils (%) (Auto) 0 % (0-3) Neutrophils # (Auto) 6.9 x10^3uL (1.8-7.7) Lymphocytes # (Auto) 1.2 x10^3/uL (1.0-4.8) Monocytes # (Auto) 0.6 x10^3/uL (0.0-1.1) Eosinophils # (Auto) 0.2 x10^3/uL (0.0-0.7) Basophils # (Auto) 0.0 x10^3/uL (0.0-0.2) Prothrombin Time 9.3 SEC (9.4-11.4) Prothromb Time International Ratio 0.9 (0.9-1.1) Activated Partial Thromboplast Time 24 SEC (23-33) D-Dimer (Citlaly) 1.52 mg/L (0.00-0.50) Sodium Level 140 mmol/L (136-145) Potassium Level 4.2 mmol/L (3.5-5.1) Chloride Level 106 mmol/L (98-107) Carbon Dioxide Level 28 mmol/L (21-32) Anion Gap 6 (6-14) Blood Urea Nitrogen 23 mg/dL (7-20) Creatinine 1.2 mg/dL (0.6-1.0) Estimated GFR (Cockcroft-Gault) 44.8 BUN/Creatinine Ratio 19 (6-20) Glucose Level 112 mg/dL (70-99) Calcium Level 8.6 mg/dL (8.5-10.1) Magnesium Level 2.1 mg/dL (1.8-2.4) Total Bilirubin 0.4 mg/dL (0.2-1.0) Aspartate Amino Transf (AST/SGOT) 11 U/L (15-37) Alanine Aminotransferase (ALT/SGPT) 17 U/L (14-59) Alkaline Phosphatase 73 U/L (46-116) Creatine Kinase 26 U/L (26-192) Creatine Kinase MB (Mass) 0.7 ng/mL (0.0-3.6) Creatine Kinase MB Relative Index % (0-4) Troponin I Quantitative < 0.017 ng/mL (0-0.055) < 0.017 ng/mL (0-0.055) < 0.017 ng/mL (0-0.055) SG-Ezw-Y-Type Natriuretic Peptide 50 pg/mL (0-124) Total Protein 6.6 g/dL (6.4-8.2) Albumin 3.5 g/dL (3.4-5.0) Albumin/Globulin Ratio 1.1 (1.0-1.7) Lipase 133 U/L (73-393) Urine Collection Type Unknown Urine Color Yellow Urine Clarity Clear Urine pH 5.0 Urine Specific Aguilar 1.025 Urine Protein Neg (NEG-TRACE) Urine Glucose (UA) Neg mg/dL (NEG) Urine Ketones (Stick) Neg mg/dL (NEG) Urine Blood Trace (NEG) Urine Nitrite Neg (NEG) Urine Bilirubin Neg (NEG) Urine Urobilinogen Dipstick 0.2 mg/dL (0.2 mg/dL) Urine Leukocyte Esterase Neg (NEG) Urine RBC 1-2 /HPF (0-2) Urine WBC 1-4 /HPF (0-4) Urine Squamous Epithelial Cells Few /LPF Urine Bacteria 0 /HPF (0-FEW) Urine Mucus Mod /LPF Images CT chest angiogram with no pulmonary emboli and nonspecific wall thickening of the distal esophagus Assessment/Plan 1. Chest pain. Resolved. No acute EKG changes. Cardiac enzymes normal x3. Would increase activities. From a cardiac viewpoint the patient may be discharged later today. We will follow-up as an outpatient. 2. Mildly elevated d-dimer at 1.52. CT chest angiogram showed no PEs. 3. Mild shortness of breath. Also resolved. We will follow-up as an outpatient. Thank you for allowing us to participate in the care of your patient. PRINCESS COATES MD Jan 14, 2020 15:50
--- NOTE | 2020-01-14 18:31 | EKG ---
[address] [address] Test Date: 2020-01-13 Test Time: 07:07:11 Pat Name: PURNIMA CULVER Department: Room: 103 A Gender: F Stitch Welder: : 1955 Requested By: SIMRAN FUNES Order Number: [id number] Reading MD: Andrew Hernandez MD Measurements Intervals [place] Rate: 67 P: 40 DE: 140 QRS: -26 QRSD: 90 T: 48 QT: 408 QTc: 434 Interpretive Statements SINUS RHYTHM LAD Electronically Signed On 02-06-2020 11:38:00 CDT by Andrew Hernandez MD
== END 2020-01-14 10:33 | disposition home or self-care (01) ==
LOC: ER 07:01 → 1 SOUTH 08:50 → ER 09:24
PROVIDERS: ADMIT Hospitalist; ATTEND Hospitalist
DX: R07.89 Other chest pain (principal); F41.8 Other specified anxiety disorders; M19.90 Unspecified osteoarthritis, unspecified site; K29.70 Gastritis, unspecified, without bleeding; T39.395A Adverse effect of other nonsteroidal anti-inflammatory drugs [NSAID], initial encounter; I77.810 Thoracic aortic ectasia; Z79.899 Other long term (current) drug therapy
CPT/HCPCS: 36415; 71275; 80053; 81001; 82553; 83690; 83735; 83880; 84484; 85025; 85379; 85610; 85730; 93005; 96361; 96374; 96375; 99285; G0378; G0379; J2405; J3010; J3490; J7030; Q9967

== ENCOUNTER → 2020-02-07 | Outpatient (CLI) | payer MEDICARE, BC ==
[2020-01-14 05:52] VITALS: BP 120/78
[~2020-02-07] MED LIST changes: +BUPR150T15 PO; +ESCITALOPRAM OX10 MG PO; +FURO40TA4 PO; +MELO15TA23 PO; +SOLI10TA2 PO
--- NOTE | 2020-02-07 08:58 | RAD ---
INDICATION: Reason: RUQ PAIN PAIN, HX OF LAP BAND / Spl. Instructions: NO CONTRAST PER ORDER / History: COMPARISON: None. TECHNIQUE: Axial CT images obtained through the abdomen and pelvis without contrast. One or more of the following individualized dose reduction techniques were utilized for this examination: 1. Automated exposure control; 2. Adjustment of the mA and/or kV according to patient size; 3. Use of iterative reconstruction technique. FINDINGS: Scattered calcific atherosclerosis. No abdominal aortic aneurysm. There is some prominence the wall of the distal esophagus proximal to the lap band which is seen at the proximal stomach. Postcholecystectomy changes. No intrahepatic bile duct dilation. No peripancreatic fluid collection. Spleen unremarkable. No hydronephrosis. Urinary bladder is largely decompressed. No periappendiceal inflammatory changes. No dilated loops of bowel to suggest obstruction. Degenerative changes the spine. IMPRESSION: * No evidence of bowel obstruction or appendicitis. * No hydronephrosis. * There is mild wall thickening of the distal esophagus with. Would correlate with symptoms in the region to ensure that this is not from a pathologic process such as esophagitis or esophageal lesion. Electronically signed by: Tray Mojica MD (02/07/2020 8:55 AM) [id number]
== END | disposition home or self-care (01) ==
LOC: CT 08:08
PROVIDERS: ATTEND Physician Assistant Medical
DX: K22.8 Other specified diseases of esophagus (principal); I70.0 Atherosclerosis of aorta
CPT/HCPCS: 74176

== ENCOUNTER → 2020-03-12 | Outpatient (CLI) | payer MEDICARE, BC ==
--- NOTE | 2020-03-13 09:39 | CARD ---
MR#: [id number] Date of Study: 03/12/2020 Ordering Physician: JP MOISE, Referring Physician: JP MOSIE, Tech: Natalie Mauro APPROVED REPORT EXAM: Two-dimensional and M-mode echocardiogram with Doppler and color Doppler. Other Information Quality : FairHR: 58bpm INDICATION Chest Pain 2D DIMENSIONS RVDd3.1 (2.9-3.5cm)Left Atrium(2D)3.3 (1.6-4.0cm) IVSd1.2 (0.7-1.1cm)Aortic Root(2D)3.3 (2.0-3.7cm) LVDd4.9 (3.9-5.9cm)LVOT Diameter2.4 (1.8-2.4cm) PWd1.2 (0.7-1.1cm)LVDs3.4 (2.5-4.0cm) FS (%) 31.1 %SV66.8 ml LVEF(%)58.6 (>50%) Aortic Valve AoV Peak Mina.130.3cm/sAoV VTI27.2cm AO Peak GR.6.8mmHgLVOT Peak Mina.82.4cm/s LVOT VTI 19.41cmAO Mean GR.4mmHg ANTONINO (VMAX)2.27et7MJJ (VTI)3.25cm2 AI P 1/2 Klde159ur Mitral Valve MV E Tkweprjc64.3cm/sMV E Peak Gr.2mmHg MV DECEL [id number] A Yowilcou37.7cm/s MV E Mean Gr.1mmHgE/A Ratio0.7 Pulmonary Valve PV Peak Uvrugswg79.5cm/sPV Peak Grad.2mmHg Tricuspid Valve TR P. Aclpwkrc864bl/sRAP [id number] TR Peak Gr.84hzBbCLPQ94szJu Pulmonary Vein S1 Hgletfkh29.3cm/sD2 Eekbokxg36.7cm/s LEFT VENTRICLE The left ventricle is normal size. There is mild concentric left ventricular hypertrophy. The left ve ntricular systolic function is normal. The Ejection Fraction is 55-60%. There is normal LV segmental wall motion. Transmitral Doppler flow pattern is Grade I-abnormal relaxation pattern. RIGHT VENTRICLE The right ventricle is normal size. There is normal right ventricular wall thickness. The right ventr icular systolic function is normal. ATRIA The left atrium size is normal. The right atrium size is normal. The interatrial septum is intact wit h no evidence for an atrial septal defect or patent foramen ovale as noted on 2-D or Doppler imaging. AORTIC VALVE The aortic valve is normal in structure and function. Doppler and Color Flow revealed trace aortic re gurgitation. There is no significant aortic valvular stenosis. Calculated aortic valve area is 3.3 cm 2 with maximum pressure gradient of 7 mmHg and mean pressure gradient of 4 mmHg. MITRAL VALVE The mitral valve is normal in structure and function. There is no evidence of mitral valve prolapse. There is no mitral valve stenosis. Doppler and Color-flow revealed trace mitral regurgitation. TRICUSPID VALVE The tricuspid valve is normal in structure and function. Doppler and Color Flow revealed trace tricus pid regurgitation with an estimated PAP of 26 mmHg. There is no tricuspid valve stenosis. PULMONIC VALVE The pulmonic valve is not well visualized. Doppler and Color Flow revealed trace pulmonic valvular re gurgitation. GREAT VESSELS The aortic root is normal in size. The ascending aorta is Mildly dilated. The IVC is normal in size a nd collapses >50% with inspiration. PERICARDIAL EFFUSION There is no evidence of significant pericardial effusion. Critical Notification Critical Value: No <Conclusion> The left ventricular systolic function is normal. The Ejection Fraction is 55-60%. There is normal LV segmental wall motion. Transmitral Doppler flow pattern is Grade I-abnormal relaxation pattern. Trace mitral regurgitation. Trace tricuspid regurgitation with an estimated PAP of 26 mmHg. There is no evidence of significant pericardial effusion. Signed by : Juan Carlos Lang, Electronically Approved : 03/13/2020 09:38:56
== END | disposition home or self-care (01) ==
LOC: ECHO 12:47
PROVIDERS: ATTEND Internal Medicine Cardiovascular Disease
DX: I51.7 Cardiomegaly (principal); R07.9 Chest pain, unspecified
CPT/HCPCS: 93306

== ENCOUNTER → 2020-07-08 | Outpatient (CLI) | payer MEDICARE, BC ==
--- NOTE | 2020-07-08 14:16 | RAD ---
DATE: 07/08/2020 10:00 AM EXAM: MAMMO SAYDA SCREENING BILATERAL HISTORY: Screening COMPARISON: 01/12/2019, left diagnostic mammogram and targeted ultrasound of 02/03/2019 Bilateral CC and MLO views of the breasts were performed. Bilateral breast tomosynthesis was performed in CC and MLO projections. This study was interpreted with the benefit of Computerized Aided Detection (CAD). FINDINGS: Breast Density: SCATTERED The breast parenchyma shows scattered fibroglandular densities. Breast parenchyma level B No suspicious masses, microcalcifications or architectural distortion is present to suggest malignancy in either breast. The visualized axillae are unremarkable. IMPRESSION: No mammographic evidence of malignancy. BI-RADS CATEGORY: 1 NEGATIVE RECOMMENDED FOLLOW-UP: 12M 12 MONTH FOLLOW-UP Annual screening mammography is recommended, unless clinically indicated sooner based on symptoms or change in physical exam. PQRS compliance statement: Patient information was entered into a reminder system with a target due date for the next mammogram. Mammography is a sensitive method for finding small breast cancers, but it does not detect them all and is not a substitute for careful clinical examination. A negative mammogram does not negate a clinically suspicious finding and should not result in delay in biopsying a clinically suspicious abnormality. "Our facility is accredited by the [employer] Mammography Program."
== END ==
LOC: MAMMO 09:48
PROVIDERS: ATTEND Physician Assistant Medical
DX: Z12.31 Encounter for screening mammogram for malignant neoplasm of breast (principal)
CPT/HCPCS: 77063; 77067

== ENCOUNTER → 2021-01-10 | Outpatient (CLI) | payer MEDICARE, BC ==
--- NOTE | 2021-01-10 16:43 | RAD ---
CLINICAL HISTORY: Recent knee surgery 3 weeks ago, pain and swelling in the left lower extremity COMPARISON: None TECHNIQUE: Ultrasound evaluation of the left lower extremity was performed from the groin to the upper calf with france scale, spectral and color doppler evaluation. FINDINGS: The common femoral vein, and femoral vein, including the saphenous-femoral junction, and popliteal ve in are normal in appearance. Color and spectral Doppler evaluation demonstrates normal spontaneous fl ow, augmentation and phasicity. There is limited visualization of calf veins due to edema but calf ve ins appear patent with normal color flow. IMPRESSION: No evidence of deep venous thrombosis in the left lower extremity. Electronically signed by: Marguerite Avilez MD (01/10/2021 4:40 PM) [id number]
== END ==
LOC: US 16:05
PROVIDERS: ATTEND Orthopaedic Surgery
DX: M79.662 Pain in left lower leg (principal); R22.42 Localized swelling, mass and lump, left lower limb; Z96.652 Presence of left artificial knee joint
CPT/HCPCS: 93971

== ENCOUNTER → 2021-02-24 | Outpatient (CLI) | payer MEDICARE, BC ==
[2021-02-24 10:14] LABS: C REACTIVE PROTEIN 1.3 mg/L (0-3.3); CREATININE 0.5 mg/dL (0.6-1.0); GFR 122.7
[2021-02-24 10:35] LABS: BASO # 0.1 x10^3/uL (0.0-0.2); BASO % 1 % (0-3); EOS # 0.2 x10^3/uL (0.0-0.7); EOS % 4 % (0-3); HEMATOCRIT 37.2 % (36.0-47.0); HEMOGLOBIN 12.4 g/dL (12.0-15.5); LYMPH # 1.1 x10^3/uL (1.0-4.8); LYMPH % 23 % (24-48); MEAN CORPUSCULAR HEMOGLOBIN 34 pg (25-35); MEAN CORPUSCULAR HGB CONC 33 g/dL (31-37); MEAN CORPUSCULAR VOLUME 101 fL (79-100); MONO # 0.4 x10^3/uL (0.0-1.1); MONO % 9 % (0-9); NEUT # 3.2 x10^3uL (1.8-7.7); NEUT % 63 % (31-73); PLATELET COUNT 161 x10^3/uL (140-400); RED BLOOD COUNT 3.68 x10^6/uL (3.50-5.40); RED CELL DISTRIBUTION WIDTH 13.3 % (11.5-14.5)
[2021-02-24 13:13] LABS: SEDIMENTATION RATE 14 (0-25)
== END ==
LOC: SPEC 09:45
PROVIDERS: ATTEND Internal Medicine Infectious Disease
DX: Z45.2 Encounter for adjustment and management of vascular access device (principal)
CPT/HCPCS: 36415; 82550; 82565; 84520; 85025; 85651; 86140

== ENCOUNTER → 2021-03-03 | Outpatient (CLI) | payer MEDICARE, BC ==
[2021-03-03 09:27] LABS: BASO % 1 % (0-3); EOS # 0.2 x10^3/uL (0.0-0.7); EOS % 5 % (0-3); HEMATOCRIT 37.9 % (36.0-47.0); HEMOGLOBIN 12.7 g/dL (12.0-15.5); LYMPH # 1.1 x10^3/uL (1.0-4.8); LYMPH % 24 % (24-48); MEAN CORPUSCULAR HEMOGLOBIN 34 pg (25-35); MEAN CORPUSCULAR HGB CONC 34 g/dL (31-37); MEAN CORPUSCULAR VOLUME 100 fL (79-100); MONO # 0.4 x10^3/uL (0.0-1.1); MONO % 9 % (0-9); NEUT # 2.8 x10^3uL (1.8-7.7); NEUT % 62 % (31-73); PLATELET COUNT 177 x10^3/uL (140-400); RED BLOOD COUNT 3.79 x10^6/uL (3.50-5.40); WHITE BLOOD COUNT 4.5 x10^3/uL (4.0-11.0)
[2021-03-03 09:39] LABS: C REACTIVE PROTEIN 2.8 mg/L (0-3.3); CREATININE 0.9 mg/dL (0.6-1.0); GFR 62.3
[2021-03-03 11:15] LABS: SEDIMENTATION RATE 13 (0-25)
== END ==
LOC: SPEC 08:28
PROVIDERS: ATTEND Internal Medicine Infectious Disease
DX: Z45.2 Encounter for adjustment and management of vascular access device (principal)
CPT/HCPCS: 36415; 82550; 82565; 84520; 85025; 85651; 86140

== ENCOUNTER → 2021-03-10 | Outpatient (CLI) | payer MEDICARE, BC ==
[2021-03-10 08:56] LABS: HEMATOCRIT 37.3 % (36.0-47.0); HEMOGLOBIN 12.4 g/dL (12.0-15.5); RED BLOOD COUNT 3.76 x10^6/uL (3.50-5.40); RED CELL DISTRIBUTION WIDTH 12.9 % (11.5-14.5); WHITE BLOOD COUNT 4.1 x10^3/uL (4.0-11.0)
[2021-03-10 09:17] LABS: C REACTIVE PROTEIN 3.3 mg/L (0-3.3); CREATININE 0.8 mg/dL (0.6-1.0); GFR 71.3
== END ==
LOC: SPEC 08:31
PROVIDERS: ATTEND Internal Medicine Infectious Disease
DX: Z45.2 Encounter for adjustment and management of vascular access device (principal)
CPT/HCPCS: 36415; 82550; 82565; 84520; 85027; 85651; 86140

== ENCOUNTER → 2021-03-17 | Outpatient (CLI) | payer MEDICARE, BC ==
[2021-03-17 11:00] LABS: BASO % 1 % (0-3); EOS # 0.2 x10^3/uL (0.0-0.7); EOS % 5 % (0-3); HEMATOCRIT 37.3 % (36.0-47.0); HEMOGLOBIN 12.4 g/dL (12.0-15.5); LYMPH % 23 % (24-48); MEAN CORPUSCULAR HEMOGLOBIN 33 pg (25-35); MEAN CORPUSCULAR HGB CONC 33 g/dL (31-37); MEAN CORPUSCULAR VOLUME 99 fL (79-100); MONO # 0.4 x10^3/uL (0.0-1.1); MONO % 8 % (0-9); NEUT # 2.9 x10^3uL (1.8-7.7); NEUT % 64 % (31-73); PLATELET COUNT 167 x10^3/uL (140-400); RED BLOOD COUNT 3.78 x10^6/uL (3.50-5.40); RED CELL DISTRIBUTION WIDTH 13.1 % (11.5-14.5); WHITE BLOOD COUNT 4.6 x10^3/uL (4.0-11.0)
[2021-03-17 12:33] LABS: C REACTIVE PROTEIN 3.6 mg/L (0-3.3); CREATININE 0.9 mg/dL (0.6-1.0); GFR 62.3
[2021-03-17 14:51] LABS: SEDIMENTATION RATE 10 (0-25)
== END ==
LOC: SPEC 09:17
PROVIDERS: ATTEND Internal Medicine Infectious Disease
DX: Z45.2 Encounter for adjustment and management of vascular access device (principal)
CPT/HCPCS: 36415; 82550; 82565; 84520; 85025; 85651; 86140